=== PATIENT | female | born 1980 | race Caucasian/White ===

== ENCOUNTER 2022-02-14 21:58 | Observation (INO) ==
[2022-02-14 22:56] LABS: Basophils # 0.1 K/mcL (0.0-0.2); Basophils % 0.6 %; Eosinophils # 0.2 K/mcL (0.0-0.6); Eosinophils % 2.1 %; Hematocrit 45.5 % (35.3-44.9); Hemoglobin 15.4 g/dL (11.5-15.4); Immature Granulocytes % 0.4 % (0-4); Lymphocytes # 3.8 K/mcL (0.6-4.6); Lymphocytes % 32.8 %; Mean Corpuscular HGB Conc 33.8 g/dL (31.6-35.5); Mean Corpuscular Hemoglobin 34.4 pg (28.0-33.3); Mean Corpuscular Volume 101.6 fL (83.0-100.0); Mean Platelet Volume 9.3 fL (9.4-12.4); Monocytes # 0.7 K/mcL (0.0-1.3); Monocytes % 5.9 %; Neutrophils # 6.8 K/mcL (1.6-8.9); Platelet Count 374 K/mcL (140-400); Red Blood Count 4.48 M/mcL (3.82-4.97); Red Cell Distribution Width 13.3 % (11.5-14.5); Segmented Neutrophils % 58.2 %; White Blood Count 11.6 K/mcL (4.3-11.1)
[2022-02-14 23:04] LABS: Amphetamine Screen,Urine Negative ng/mL (Cutoff=1000); Bacteria,Urine Few per hpf (None-Few); Barbiturate Screen,Urine Negative ng/mL (Cutoff=200); Benzodiazepines Screen,Urine Negative ng/mL (Cutoff=200); Bilirubin,Urine Negative (Negative); Blood,Urine Small (Negative); Cannabinoid Screen,Urine Negative ng/mL (Cutoff = 50); Clarity,Urine Turbid (Clear); Cocaine Screen,Urine Negative ng/mL (Cutoff= 300); Color,Urine Yellow (Yellow); Glucose,Urine (UA) Normal (Normal); Ketones,Urine Negative (Negative); Leukocyte Esterase,Urine Negative (Negative); Mucus,Urine Few per lpf (None-Few); Nitrite,Urine Negative (Negative); Opiate Screen,Urine Negative ng/mL (Cutoff=300); PH,Urine 5.5 pH Units (5.0-8.0); Phencyclidine Screen,Urine Negative ng/mL (Cutoff=25); Protein,Urine 30 mg/dL (Neg-Trace); RBC,Urine 0-3 per hpf (0-3); Specific Gravity,Urine 1.019 (1.010-1.025); Sperm,Urine Present per hpf (None Seen); Squamous Epithelial Cell,Urine Many per hpf (None-Few); Urobilinogen,Urine Normal (Normal)
[2022-02-14 23:14] LABS: Acetaminophen < 10 mcg/mL (10-20); BUN/Creatinine Ratio 12 (6-26); Blood Urea Nitrogen 13 mg/dL (6-20); Carbon Dioxide 17 mEq/L (23-29); Chloride 108 mEq/L (98-107); Ethanol 164 mg/dL (Less than 10); Glucose 89 mg/dL (70-105); Osmolality,Calculated 288 (280-300); Potassium 3.6 mEq/L (3.5-5.1); Salicylate < 2.5 mg/dL (15.0-30.0); Sodium 139 mEq/L (136-145)
[2022-02-15 05:06] LABS: Influenza A PCR Negative (Negative); Influenza B PCR Negative (Negative); Resp. Syncytial Virus PCR Negative (Negative); SARS-CoV-2 by PCR (In House) Negative (Negative)
[2022-02-15] MEDS ORDERED: hydrOXYzine pamoate 25 MG CAPSULE PO PRN (05:16)
[2022-02-15] MEDS ORDERED: haloperidoL 5 MG TABLET PO PRN (05:16)
[2022-02-15] MEDS ORDERED: Haloperidol Lactate 5 MG/ML VIAL IM PRN (05:16)
[2022-02-15] MEDS ORDERED: traZODone 50 MG TABLET PO PRN (05:16)
[2022-02-15] MEDS ORDERED: Ibuprofen 400 MG TABLET PO PRN (06:00)
[2022-02-15] MEDS: Venlafaxine XR (24 HR) 75 MG CAP.ER.24H PO SCH (12:54)
[2022-02-15] MEDS: clonazePAM 1 MG TABLET PO SCH ×2 (12:54→20:12)
[2022-02-15] MEDS: BuPROPion XL (24 HR) 150 MG TABLET PO SCH (12:55)
[2022-02-15] MEDS: Gabapentin 400 MG CAPSULE PO SCH ×2 (14:05→20:12)
[2022-02-15] MEDS: Topiramate 100 MG TABLET PO SCH (14:05)
[2022-02-15] MEDS ORDERED: MOM Conc 10 ML UD.LIQ PO PRN (14:52)
[2022-02-15] MEDS ORDERED: Mag Hydrox/Al Hydrox/Simeth 30 ML UDC PO PRN (14:52)
[2022-02-15] MEDS ORDERED: rOPINIRole 1 MG TABLET PO SCH (21:00)
[2022-02-16 08:23] VITALS: BP 106/74; PULSE 98; TEMP 97.6; O2SAT 96
[2022-02-16] MEDS: Gabapentin 400 MG CAPSULE PO SCH (08:34)
[2022-02-16] MEDS: clonazePAM 1 MG TABLET PO SCH (08:34)
[2022-02-16] MEDS: Venlafaxine XR (24 HR) 75 MG CAP.ER.24H PO SCH (08:34)
[2022-02-16] MEDS: Topiramate 100 MG TABLET PO SCH (08:34)
[2022-02-16] MEDS: BuPROPion XL (24 HR) 150 MG TABLET PO SCH (08:34)
== END 2022-02-16 13:35 | disposition home or self-care (01) ==
LOC: EMEROOARM 21:58 → 1ANU 21:58
PROVIDERS: ADMIT Psychiatry & Neurology Psychiatry; ATTEND Psychiatry & Neurology Psychiatry